=== PATIENT | male | born 1995 | race Caucasian/White ===

== ENCOUNTER 2021-06-13 08:30 | Emergency (ER) | payer BC, SELFPAY ==
--- NOTE | ~2021-06-13 | XR_ITS ---
EXAMINATION: XR chest 2V DATE: 06/13/2021 09:13 INDICATION: COVID positive with cough TECHNIQUE: PA and lateral views of the chest were obtained. COMPARISON: None FINDINGS: Subtle patchy airspace opacities in the bilateral mid and lower lung zones consistent with pneumonia. No pleural effusion or pneumothorax. The cardiomediastinal silhouette is normal. Mild thoracic and u pper lumbar spondylosis. IMPRESSION: 1. Subtle patchy airspace opacities in the bilateral mid and lower lung zones consistent with pneumon ia. Reviewed, dictated and finalized at location [facility] IMPRESSION: 1. Subtle patchy airspace opacities in the bilateral mid and lower lung zones c onsistent with pneumonia.
--- NOTE | 2021-06-13 08:44 | ED.URI ---
HPI - URI/Sore Throat General Chief Complaint: Upper Respiratory Infection Stated Complaint: Hard to breathe Time Seen by Provider: 06/13/21 08:44 Source: patient and RN notes reviewed Mode of arrival: ambulatory Limitations: no limitations History of Present Illness HPI Narrative: 25-year-old male presents to the [facility] with shortness of breath. States he tested positive for Covid 5 days ago. States the original symptom was just a headache. Started last night coughing. Started with shortness of breath as well last night. States his chest hurts especially when he coughs No nausea vomiting or diarrhea. Denies fevers. Related Data Allergies Allergy/AdvReac Type Severity Reaction Status Date / Time No Known Allergies Allergy Mild Verified 06/13/21 09:07 Review of Systems Review of Systems: All systems reviewed & are unremarkable except as noted in HPI and below Constitutional: Constitutional: Reports no additional constitutional complaints Eyes: Eyes: Reports no additional eye complaints ENT: Reports system reviewed and no additional complaints, except as documented Cardiovascular: Cardiovascular: Reports no additional cardiovascular complaints Respiratory: Respiratory: Reports as per HPI, Reports chest congestion, Reports pain with cough and Reports dyspnea Gastrointestinal: Gastrointestinal: Reports no additional gastrointestinal complaints and Denies abdominal pain Musculoskeletal: Musculoskeletal: Reports no additional musculoskeletal complaints Integumentary/Breasts: Skin/Breast: Reports system reviewed and no additional complaints, except as docu Neurologic: Reports system reviewed and no additional complaints, except as documented Psychiatric: Psychiatric: Reports no additional psychiatric complaints Allergic/Immunologic: Allergic/Immunologic: Reports no additional allergic/immunologic complaints PMFSH Past Medical History Medical History (Updated 06/13/21 @ 09:43 by Cynthia Adams) Patient denies medical problems Surgical History Surgical History (Updated 06/13/21 @ 09:06 by Cynthia Adams) No pertinent past surgical history Social History Social History (Updated 06/13/21 @ 09:06 by Cynthia Adams) Gender identity (if verbalized by the patient): Male Comments At the time of my signature, I reviewed and agree with the nursing past medical, surgical, social, and family history. There is no relevant family history pertinent to the patient complaint. Exam Const: General: cooperative, no acute distress, alert, acute distress mild, tired appearing and well groomed Nutritional Appearance: well nourished and obese Orientation/consciousness: patient oriented x3 Limitations: no limitations HENMT: Head: normal to inspection Ears: hearing grossly normal bilaterally General nose exam: Normal external nose present and Normal nasal mucous membranes and turbinates present Face and sinus: normal facial exam Mouth: Yes Normal oral and palatal mucosa present Throat: posterior oropharynx normal and uvula midline Eyes: General: appearance normal, both eyes and all related structures Visual Deluna: normal visual deluna by confrontation Alignment and Position: alignment normal Pupils: Equal, round and reactive pupils present Neck: Neck: normal visual inspection and full ROM Chest: Chest palpation & inspection: normal inspection of the chest Resp: Effort & Inspection: normal respiratory effort and able to speak in complete sentences Auscultation: no crackles, no rales, no rhonchi, no wheezes and diminished lung sounds bilateral in the lower lung deluna Cardio: Rate: regular rate Rhythm: regular rhythm Back/Spine/Pelvis: Back: no CVA tenderness Skin: General skin exam: normal color, no rashes or lesions noted, no ecchymosis and no erythema Lesions: no lesions Rashes: no rashes Wounds: no wounds Neuro: General: patient oriented x3, gait normal, tone normal and moves all extremities Gait exam
[2021-06-13 08:49] VITALS: BP 150/107; PULSE 98; RESP 18; TEMP 36.4; O2SAT 98
== END 2021-06-13 09:40 | disposition home or self-care (01) ==
PROVIDERS: Emergency Provider Nurse Practitioner
DX: J18.9 Pneumonia, unspecified organism (principal)
CPT/HCPCS: 71046; 99213; G0463

== ENCOUNTER 2022-01-27 08:30 | Emergency (ER) | payer BC, SELFPAY ==
[2022-01-27 08:38] VITALS: BP 174/100; PULSE 77; RESP 16; TEMP 36.6; O2SAT 99
--- NOTE | 2022-01-27 08:51 | ED.NAVMDI ---
HPI - Nausea/Vomiting/Diarrhea General Chief complaint: Nausea/Vomiting/Diarrhea Stated complaint: abd pain Time Seen by Provider: 01/27/22 08:51 Source: patient and RN notes reviewed Mode of arrival: ambulatory Limitations: no limitations History of Present Illness HPI Narrative: 26 female presented for complaint of nausea, vomiting, and diarrhea last night. He reports missing work last night due to the symptoms. He did not take anything for symptoms but resolved this morning. He has not eaten anything today. Denies cough, shortness of breath, fevers or chills. Denies sick contacts. Related Data Home Medications Medication Instructions Recorded Confirmed No Home Medications 01/27/22 01/27/22 Allergies Allergy/AdvReac Type Severity Reaction Status Date / Time No Known Allergies Allergy Mild Verified 01/27/22 08:45 Review of Systems Review of Systems: CONSTITUTIONAL: Denies body aches, fever, chills ENT: Denies rhinorrhea, congestion CARDIOVASCULAR: Denies chest pain, palpitations, or edema. RESPIRATORY: Denies cough or dyspnea. GASTROINTESTINAL: Denies abdominal pain, Denies hematochezia, melena, hematemesis GENITOURINARY: Denies dysuria, hematuria, or CVA tenderness. SKIN: Denies rash, itching, or wounds. MUSCULOSKELETAL: Denies back pain, joint pain, or myalgia. NEUROLOGIC: Denies headache All systems reviewed & are unremarkable except as noted in HPI and below PMFSH Past Medical History Medical History Patient denies medical problems Surgical History Surgical History No pertinent past surgical history Social History Social History Gender identity (if verbalized by the patient): Male Comments At time of signature, I have reviewed and agree with nursing past medical, surgical, social and family history unless otherwise noted. Please see nursing chart for further information. There is no relevant family history pertinent to the presenting complaint Exam Narrative: GENERAL: Well-appearing EYES: EOMI. Conjunctivae normal. ENT: Mucous membranes pink and moist. CHEST: No respiratory distress. Clear to auscultation. HEART: Regular rate and rhythm. No murmur appreciated. Normal peripheral pulses. ABDOMEN: abd soft, nondistended, normal active bowel sounds. Nontender abdomen EXTREMITIES: Normal range of motion. No edema. SKIN: Warm, dry, no rash. Capillary refill normal. Normal skin turgor. NEURO: No focal deficits. Alert and oriented x3. PSYCH: Normal affect. Course Course Emergency Course: Patient is aware of diagnosis, understands and agrees to treatment plan. Anticipatory guidance given. Patient agrees to follow-up as directed and is aware of reasons to seek care at the emergency department. Portions of this record may have been created with voice recognition software Level of Care: Express Care Visit Vital Signs Vital signs: Vital Signs Temperature 97.9 F 01/27/22 08:38 Pulse Rate 77 01/27/22 08:38 Respiratory Rate 16 01/27/22 08:38 Blood Pressure 174/100 H 01/27/22 08:38 Pulse Oximetry 99 01/27/22 08:38 Oxygen Delivery Room Air 01/27/22 08:38 Temperature 97.9 F 01/27/22 08:38 Pulse Rate 77 01/27/22 08:38 Respiratory Rate 16 01/27/22 08:38 Blood Pressure 174/100 H 01/27/22 08:38 Pulse Oximetry 99 01/27/22 08:38 Oxygen Delivery Room Air 01/27/22 08:38 MDM - Nausea/Vomiting/Diarrhea MDM Narrative Medical decision making narrative: Advised supportive measures for n/v/d and signs/symptoms to go to the ER. BP elevated, advised to contact PCP. Pt is appropriate for outpt treatment and f/u. Differential Diagnosis Differential diagnosis: Likely food poisoning, gastroenteritis and dehydration Discharge Plan Discharge Clinical Impression: Nausea, vomiting and
== END 2022-01-27 09:02 | disposition home or self-care (01) ==
PROVIDERS: Emergency Provider Nurse Practitioner Family
DX: R11.2 Nausea with vomiting, unspecified (principal); R19.7 Diarrhea, unspecified
CPT/HCPCS: 99213; G0463

== ENCOUNTER 2024-07-12 14:22 | Emergency (ER) | payer BC, SELFPAY ==
[2024-07-12 14:55] VITALS: BP 140/8; PULSE 111; RESP 18; TEMP 38.6; O2SAT 99
--- NOTE | 2024-07-12 14:57 | ED_ITS ---
HPI - URI/Sore Throat General Chief Complaint: Upper Respiratory Infection Stated Complaint: Bodyaches/Cough Source: patient and RN notes reviewed Mode of arrival: ambulatory Limitations: no limitations History of Present Illness HPI Narrative: 28 y/o male presented for c/o body aches, sinus pressure/congestion, cough, fever/chills. Feels tight and heavy in chest with coughing and when taking deep breaths. Reports concern due to a history of pneumonia. Denies sob, wheezing, n/v/d. Pt tested neg for covid at home yesterday. Took Cold and Flu medicine. MD elicited complaint: cough Related Data Allergies Allergy/AdvReac Type Severity Reaction Status Date / Time No Known Allergies Allergy Mild Verified 07/12/24 15:02 Review of Systems Review of Systems: CONSTITUTIONAL: Endorses malaise, chills, sweats, fever EYES: Denies visual changes, redness, or discharge ENT: Reports rhinorrhea, congestion, otalgia, sore throat CARDIOVASCULAR: Denies chest pain, palpitations, edema RESPIRATORY: Reports cough, post nasal drainage. Denies dyspnea GASTROINTESTINAL: Denies abdominal pain, nausea, vomiting, diarrhea SKIN: Denies rash or itching MUSCULOSKELETAL: Endorses myalgia PMFSH Past Medical History Medical History Patient denies medical problems Surgical History Surgical History No pertinent past surgical history Social History Social History Gender identity (if verbalized by the patient): Male Exam Narrative: GENERAL: Ill-appearing, nontoxic no acute distress. EYES: PERRLA, conjunctivae clear ENT: Mucous membranes moist. TM pearly mullins with dull light reflex bilaterally; no tragal tenderness. Oropharynx erythematous without lesions or exudate, no drooling, no hoarseness, no trismus, uvula midline. No tripod positioning, muffled voice, soft palate or pharyngeal wall bulging NECK: Supple. No lymphadenopathy CHEST: Clear to auscultation, breath sounds equal. No wheezing, rhonchi, rales, or stridor. No respiratory distress, speaks in full sentences. HEART: Regular rate and rhythm. No murmur heard. SKIN: Warm, dry NEURO: Alert and oriented x3. PSYCH: Normal mood and affect Course Course Emergency Course: Patient is aware of diagnosis, understands and agrees to treatment plan. Anticipatory guidance given. Patient agrees to follow-up as directed and is aware of reasons to seek care at the emergency department. Portions of this record may have been created with voice recognition software Level of Care: Express Care Visit Vital Signs Vital signs: reviewed MDM - URI/Sore Throat MDM Narrative Medical decision making narrative: POS flu. Discussed physical exam findings. discussed risks and benefits of Tamiflu, is requesting the prescription. Also offered incentive spirometer to prevent pneumonia, he says he has 1 at home. Advised supportive measures and signs/symptoms to go to the ER. Pt is appropriate for outpt treatment and f/u. Differential Diagnosis Differential diagnosis: Likely upper respiratory infection, sinusitis, viral infection, bronchitis and influenza Discharge Plan Discharge Clinical Impression: Influenza Patient Disposition: Home, Self-Care Condition: Stable Instructions: Influenza (ED) Additional Instructions: Influenza positive You should avoid crowds until you are fever free for 24 hours without the use of fever reducing medications, or the symptoms are improved Rest. Drink plenty of fluids. Tylenol 1000mg every 8 hours as needed for pain/fever Flonase spray and Zyrtec (or Claritin/Amina) for sinus pressure/congestion over the counter Cough syrup may cause drowsiness; avoid driving or take it at night time. Take medication as directed. Tamiflu can cause nausea, vomiting, headache, pain Follow up with your primary care provider as needed Go to the ER for worsening symptoms or concerns Patient Language: Vietnamese Prescriptions: New oseltamivir [Tamiflu] 75 mg capsule 75 mg PO Q12H 5 Days Qty: 10 0RF prednisone 50 mg tablet 50 mg PO DAILY Qty: 5 0RF Follow-up/Referrals: PHYSICIAN,INTERNAL REVIEW AND [facility]PLIANCE [Primary Care Provider] -
[2024-07-12 15:50] LABS: EDCOVIDSCREEN Negative (Negative); EDINFLUASCREEN Positive (Negative); EDINFLUBSCREEN Negative (Negative)
== END 2024-07-12 15:15 | disposition home or self-care (01) ==
PROVIDERS: Emergency Provider Nurse Practitioner Family
DX: J10.1 Influenza due to other identified influenza virus with other respiratory manifestations (principal); Z20.822 Contact with and (suspected) exposure to COVID-19
CPT/HCPCS: 87426; 87804; 99213; G0463